=== PATIENT | male | born 1955 | race Caucasian/White ===

== ENCOUNTER 2018-05-27 20:32 | Emergency (ER) | payer OTHER ==
[~2018-05-27] VITALS: Ht 170.2 cm; Wt 82.8 kg
[~2018-05-27 20:32] MED LIST: ASPI-621 PO; FURO-93 PO; HYDR-3245 PO; LEVO125C2 PO; MELO15TA24 PO; METO25TA35 PO; POTA10TA5 PO; SIMV20TA3 PO; WARF5TAB PO; [UNRECOGNIZED DRUG - OTHER]
[2018-05-27 20:38] VITALS: BP 124/79
[2018-05-27] MEDS ORDERED: FLUORESCEIN OPHTHALMIC 1 MG STRIP EACHEYE ONE (21:30)
== END 2018-05-27 21:44 | disposition home or self-care (01) ==
LOC: ED 20:56
DX: S05.02XA Injury of conjunctiva and corneal abrasion without foreign body, left eye, initial encounter (principal); W22.8XXA Striking against or struck by other objects, initial encounter; Y93.89 Activity, other specified; Y99.8 Other external cause status; Y92.89 Other specified places as the place of occurrence of the external cause
CPT/HCPCS: 99283

== ENCOUNTER → 2018-09-19 | Outpatient (CLI) | payer OTHER ==
[~2018-09-19] MED LIST changes: -ASPI-621 PO; +ASPI-650 PO; +ASPI81TA45 PO; +CBD; +testosterone cream TD
[2018-09-19 10:24] LABS: BASOPHILS # (AUTO) 0.02 x10^3/uL (0-0.1); BASOPHILS % (AUTO) 0 % (0-1); EOSINOPHILS # (AUTO) 0.21 x10^3/uL (0-0.4); EOSINOPHILS % (AUTO) 4 % (1-7); LYMPHOCYTES # (AUTO) 1.06 x10^3/uL (1-3.4); LYMPHOCYTES % (AUTO) 18 % (22-44); MD NO; MEAN CORPUSCULAR HEMOGLOBIN 31.8 pg (27.5-34.5); MEAN CORPUSCULAR HGB CONC 33.1 g/dL (33.2-36.2); MEAN CORPUSCULAR VOLUME 96.1 fL (81-97); MEAN PLATELET VOLUME 8.1 fL (7.4-10.4); MONOCYTES # (AUTO) 0.33 x10^3/uL (0.2-0.8); MONOCYTES % (AUTO) 5 % (2-9); NEUTROPHILS % (AUTO) 73 % (42-75); PLATELET COUNT 236 x10^3/uL (130-400); RED BLOOD COUNT 4.61 x10^6/uL (4.38-5.82)
[2018-09-19 10:35] LABS: ALBUMIN 3.8 g/dL (3.4-5.0); ANION GAP 4 mmol/L (5-15); CALCIUM 8.6 mg/dL (8.5-10.1); CHLORIDE 108 mmol/L (98-107)
[2018-09-19 10:40] LABS: ALANINE AMINOTRANSFERASE 21 U/L (12-78); ALKALINE PHOSPHATASE 78 U/L (45-117); BILIRUBIN,TOTAL 1.1 mg/dL (0.2-1.0); CREATININE 0.91 mg/dL (0.7-1.3); TOTAL PROTEIN 6.8 g/dL (6.4-8.2)
== END | disposition home or self-care (01) ==
LOC: STAR 09:05
PROVIDERS: ATTEND Orthopaedic Surgery
DX: I51.7 Cardiomegaly (principal); M25.561 Pain in right knee; Z96.651 Presence of right artificial knee joint
CPT/HCPCS: 36415; 80053; 85025; 87081; 93005

== ENCOUNTER 2018-09-27 12:03 | Inpatient (IN) | payer OTHER ==
[2018-09-19 09:47] VITALS: BP 127/84
[~2018-09-27] VITALS: Ht 175.3 cm; Wt 82.6 kg
[~2018-09-27 12:03] MED LIST changes: +DEXAMETHASONE 4 MG/ML, 1ML ONE; +PHENYLEPHRINE 10 MG/ML ONE; +cloniDINE/PF 100 MCG/ML, 10 ML ONE
[2018-09-27] MEDS ORDERED: LACTATED RINGERS 1,000 ML IV SCH (12:27)
[2018-09-27] MEDS ORDERED: OxyconTIN ER 10 MG TAB.ER PO ONE (12:30)
[2018-09-27] MEDS ORDERED: VANCOMYCIN PER PHARMACY MC PRN (12:30)
[2018-09-27] MEDS ORDERED: GABAPENTIN 300 MG CAPSULE PO ONE (12:30)
[2018-09-27] MEDS ORDERED: ACETAMINOPHEN 500 MG TABLET PO ONE (12:30)
[2018-09-27] MEDS ORDERED: DIPH25CA61 PO (12:48)
[2018-09-27] MEDS ORDERED: FENTANYL PF 250 MCG/5ML ONE (13:57)
[2018-09-27] MEDS ORDERED: MIDAZOLAM 1 MG/ML, 2ML ONE (13:57)
[2018-09-27] MEDS ORDERED: VANCOMYCIN 1,400 MG in SODIUM CHLORIDE 0.9% 250 ML IV ONE (14:00)
[2018-09-27] MEDS ORDERED: hydrALAzine 20 MG/ML, 1ML IV PRN (14:30)
[2018-09-27] MEDS ORDERED: HYDROmorphone 2 MG/ML, 1ML IVPush PRN (14:30)
[2018-09-27] MEDS ORDERED: SCOPOLAMINE PATCH, 1.5MG PATCH.TD72 TD ONE (14:30)
[2018-09-27] MEDS ORDERED: ONDANSETRON 2MG/ML, 2ML IV PRN ×2 (14:30→17:30)
[2018-09-27] MEDS ORDERED: MEPERIDINE/PF 25MG/0.5ML IVPush PRN (14:30)
[2018-09-27] MEDS ORDERED: MIDAZOLAM 1 MG/ML, 2ML IV PRN (14:30)
[2018-09-27] MEDS ORDERED: METOPROLOL 1 MG/ML, 5ML IV PRN (14:30)
[2018-09-27] MEDS ORDERED: ALBUTEROL/IPRATROPIUM 2.5MG/0.5MG, 3 ML NPPB PRN (14:30)
[2018-09-27] MEDS ORDERED: OXYcodone 5 MG/5 ML ORAL.SOL UDC PO PRN (14:30)
[2018-09-27] MEDS ORDERED: DIAZEPAM 5 MG/ML, 2ML IVPush PRN (14:30)
[2018-09-27] MEDS ORDERED: PROMETHAZINE 25 MG/ML, 1ML IV PRN (14:30)
[2018-09-27] MEDS ORDERED: FENTANYL PF 100 MCG/2ML IV PRN (14:30)
[2018-09-27] MEDS ORDERED: TRANEXAMIC ACID 100 MG/ML, 10ML ONE (14:45)
[2018-09-27] MEDS ORDERED: KETOROLAC 60 MG/2 ML ONE (14:45)
[2018-09-27] MEDS ORDERED: EPINEPHRINE 1 MG/ML, 1ML ONE (14:46)
[2018-09-27] MEDS ORDERED: ROPIvacaine/PF 0.2%, 20 ML ONE (14:46)
[2018-09-27] MEDS ORDERED: SODIUM CHLORIDE 0.9% 100 ML ONE (14:46)
[2018-09-27] MEDS ORDERED: VANCOMYCIN 1,000 MG ONE ×2 (15:38→16:12)
[2018-09-27] MEDS ORDERED: CEFAZOLIN 1,000 MG ONE (15:48)
[2018-09-27] MEDS ORDERED: PROPOFOL 50 ML ONE ×2 (15:48→16:50)
[2018-09-27] MEDS ORDERED: LIDOCAINE-MPF 2% ,5ML ONE ×2 (15:48)
[2018-09-27] MEDS ORDERED: PROPOFOL 10 MG/ML, 20ML ONE (15:48)
[2018-09-27] MEDS ORDERED: ONDANSETRON 2MG/ML, 2ML ONE (15:48)
[2018-09-27] MEDS ORDERED: BUPIVACAINE/PF 0.25% ONE (15:48)
[2018-09-27] MEDS ORDERED: MORPHINE SULFATE 4 MG/ML, 1ML ONE (16:16)
[2018-09-27] MEDS ORDERED: METOCLOPRAMIDE 5 MG/ML, 2ML ONE (17:09)
[2018-09-27] MEDS ORDERED: ZOLPIDEM 5MG TABLET PO PRN (17:30)
[2018-09-27] MEDS ORDERED: PROMETHAZINE 12.5 MG SUPP PR PRN (17:30)
[2018-09-27] MEDS ORDERED: HYDROcodone/APAP 5/325 TABLET PO PRN (17:30)
[2018-09-27] MEDS ORDERED: LORazepam 1MG TABLET PO PRN (17:30)
[2018-09-27] MEDS ORDERED: ACETAMINOPHEN 650 MG/20.3 ML UDC PO PRN (17:30)
[2018-09-27] MEDS ORDERED: DIPHENHYDRAMINE 25 MG CAPSULE PO PRN (17:30)
[2018-09-27] MEDS ORDERED: ALUMINUM/MAG/SIMETHICONE 30 ML UDC PO PRN (17:30)
[2018-09-27] MEDS ORDERED: HYDROmorphone 1 MG/ML, 1ML AMP IV PRN (17:30)
[2018-09-27] MEDS ORDERED: HYDROcodone/APAP 10/325 MG TABLET PO PRN (17:30)
[2018-09-27] MEDS ORDERED: SENNA/DOCUSATE TABLET PO PRN (17:30)
[2018-09-27] MEDS ORDERED: DIAZEPAM 5 MG TABLET PO PRN (17:30)
[2018-09-27] MEDS ORDERED: MAGNESIUM HYDROXIDE 8%, 30ML UDC PO PRN (17:30)
[2018-09-27] MEDS ORDERED: BISACODYL 10 MG SUPP PR PRN (17:30)
[2018-09-27] MEDS ORDERED: ONDANSETRON 4 MG TABLET PO PRN (17:30)
[2018-09-27] MEDS ORDERED: PROMETHAZINE 25 MG/ML, 1ML IM PRN (17:30)
[2018-09-27] MEDS ORDERED: TRANEXAMIC ACID 1,000 MG in SODIUM CHLORIDE 0.9% 100 ML IVPB ONE (17:40)
[2018-09-27] MEDS ORDERED: OXYcodone 5 MG/5 ML ORAL.SOL UDC ONE (18:33)
[2018-09-27] MEDS ORDERED: FENTANYL PF 100 MCG/2ML ONE (18:33)
[2018-09-27 20:00] VITALS: BP 110/61
[2018-09-27] MEDS: DOCUSATE 100 MG CAPSULE PO SCH (21:13)
[2018-09-27] MEDS: D5%-0.45% NACL 1,000 ML IV SCH (22:39)
[2018-09-27] MEDS: CEFAZOLIN PMX 1GM/50ML 50 ML IVPB SCH (22:41)
[2018-09-28 00:07] VITALS: BP 104/53
[2018-09-28 04:11] VITALS: BP 90/53
[2018-09-28] MEDS ORDERED: LEVOTHYROXINE 125 MCG TABLET PO SCH (06:00)
[2018-09-28] MEDS ORDERED: DEXAMETHASONE 4 MG/ML, 1ML IVPush SCH (06:00)
[2018-09-28] MEDS ORDERED: ASPIRIN 325 MG TABLET EC PO SCH (06:00)
[2018-09-28] MEDS: CEFAZOLIN PMX 1GM/50ML 50 ML IVPB SCH (06:25)
[2018-09-28] MEDS: DOCUSATE 100 MG CAPSULE PO SCH (08:28)
[2018-09-28] MEDS: D5%-0.45% NACL 1,000 ML IV SCH (08:29)
[2018-09-28 08:40] VITALS: BP 87/48
[2018-09-28] MEDS ORDERED: HYDR-3307 PO (08:53)
[2018-09-28] MEDS ORDERED: TSP TD SCH (09:00)
[2018-09-28] MEDS ORDERED: MULTIVITAMINS/MINERALS TABLET PO SCH (09:00)
[2018-09-28 09:49] VITALS: BP 96/54
[2018-09-28] MEDS ORDERED: KETOROLAC 30 MG/1 ML IV SCH (17:30)
== END 2018-09-28 10:28 | disposition home or self-care (01) | DRG 468 ==
LOC: ORIP 12:03 → 4NOR 19:41 → DCLOUNGE 09-28 10:15
PROVIDERS: ADMIT Orthopaedic Surgery; ATTEND Orthopaedic Surgery
PROC: 0SRC0J9 Replacement of Right Knee Joint with Synthetic Substitute, Cemented, Open Approach (ICD-10-PCS; 2018-09-27)
PROC: 3E0T3BZ Introduction of Anesthetic Agent into Peripheral Nerves and Plexi, Percutaneous Approach (ICD-10-PCS; 2018-09-27)
PROC: 0SPC0JZ Removal of Synthetic Substitute from Right Knee Joint, Open Approach (ICD-10-PCS; principal; 2018-09-27 14:30)
DX: T84.84XA Pain due to internal orthopedic prosthetic devices, implants and grafts, initial encounter (principal); Y83.1 Surgical operation with implant of artificial internal device as the cause of abnormal reaction of the patient, or of later complication, without mention of misadventure at the time of the procedure; K21.9 Gastro-esophageal reflux disease without esophagitis; E03.9 Hypothyroidism, unspecified; Y92.89 Other specified places as the place of occurrence of the external cause; Z91.048 Other nonmedicinal substance allergy status; Z79.01 Long term (current) use of anticoagulants; Z95.2 Presence of prosthetic heart valve; Z91.018 Allergy to other foods; Z79.899 Other long term (current) drug therapy
CPT/HCPCS: 36415; 85014; 85018; C1713; G0378; J0171; J0690; J1100; J1885; J2250; J2405; J2704; J2795; J3010; J3370; J3490; C1762; C1776; J0735; J2370; J2765; J7050; J7120; Q0163